=== PATIENT | female | born 1990 | race African-American/Black ===

== ENCOUNTER 2017-01-27 13:28 | Emergency (ER) | payer SELFPAY ==
[~2017-01-27] VITALS: Ht 167.6 cm; Wt 90.0 kg
[~2017-01-27 13:28] MED LIST: AUGM875T PO
[2017-01-27 13:30] VITALS: BP 142/78; PULSE 107; RESP 16; TEMP 98.4; O2SAT 98
--- NOTE | 2017-01-27 13:41 | PD ---
HPI . painful menses Chief Complaint: Front Services Agent Problem/Complaint Time Seen by Provider: 13:41 Travel History International Travel<30 days: No Contact w/Intl Traveler<30days: No Traveled to known affect area: No History of Present Illness HPI 26-year-old female with no significant past medical history here with complaints of painful menses. Patient tells me that she had some spotting prior to her period and then all of a sudden got her period on January 23 and has had some more pain than usual. She would like to know if the pain is going to stop. Pain is alleviated with Aleve/Motrin. She just wants to know what's going on so that she does not take pain relievers. She tells me that she took a test and it was negative. She denies any other symptoms. She denies any nausea, vomiting, abdominal pain, diarrhea etc. She is accompanied by her mother. PFSH Past Medical History Diminished Hearing: No Immunizations Current: No ?: Not Social History Alcohol Use: No Tobacco Use: No Substance Use: No Allergies-Medications (Allergen,Severity, Reaction): Coded Allergies: No Known Allergies (Verified , 01/27/17) Reported Meds & Prescriptions Reported Meds & Active Scripts Active Review of Systems General / Constitutional: No: Fever Eyes: No: Visual changes HENT: No: Headaches Cardiovascular: No: Chest Pain or Discomfort Respiratory: No: Shortness of Breath Gastrointestinal: No: Abdominal Pain Genitourinary: Positive: Other (painful menses), No: Dysuria Musculoskeletal: No: Pain Skin: No Rash Neurologic: No: Weakness Psychiatric: No: Depression Endocrine: No: Polydipsia Hematologic/Lymphatic: No: Easy Bruising Physical Exam Narrative GENERAL: AAO x 3, no acute distress, Well-nourished, well-developed patient. SKIN: Warm and dry. No visible rashes or bruising. Facial hair on her chin and neck HEAD: Normocephalic and atraumatic. EYES: No scleral icterus. No injection or drainage. EOM intact, PERRLA. Mart Conjunctiva bilaterally ENT: No nasal drainage noted. Mucous membranes pink. Airway patent. Mart pupil mucosa. Moist mucous membranes. NECK: Supple, trachea midline. No JVD. No lymphadenopathy CARDIOVASCULAR: Regular rate and rhythm without murmurs, gallops, or rubs. HR on exam 98 RESPIRATORY: Breath sounds equal bilaterally. No accessory muscle use. No rhonchi or rales. GASTROINTESTINAL: Abdomen soft, non-tender, nondistended. No rebound or guarding. No [place] sign. No McBurney's point tenderness EXTREMITIES: No cyanosis or edema. BACK: No obvious deformity. NEURO: CN II-12 intact PSYCH: AAO x 3, normal affect. Data Data Last Documented VS Vital Signs Date Time Temp Pulse Resp B/P (MAP) Pulse Ox O2 Delivery O2 Flow Rate FiO2 01/27/17 13:30 98.4 107 16 142/78 (99) 98 Orders Orders Ed Urine Pregnancytest Poc (01/27/17 13:53) MDM Medical Decision Making Medical Screen Exam Complete: Yes Emergency Medical Condition: Yes Medical Record Reviewed: Yes Differential Diagnosis irregular menses, PCOS, less likely Narrative Course 26-year-old female here with complaints of painful menstrual cycle. On examination there are no gross normality is. I do not believe patient would benefit from any further workup. I recommend she follow-up with her primary care provider or automobile carpets molder. It appears she may have polycystic ovarian syndrome and this could be contributing to her issues. I advised patient to continue using Aleve and Motrin since it seems to be working for her menstrual discomfort. Patient verbalized understanding of instructions, questions were answered, and thanked me for their care. I advised them if their condition worsens, please return to the nearest emergency room for further care. Diagnosis Primary Impression: Painful menstruation Patient Instructions: General Instructions Additional Instructions: Continue using Aleve or Ibuprofen as needed for pain. Disposition: 01 DISCHARGE HOME Condition: Stable Sabrina Case Jan 27, 2017 13:41
== END 2017-01-27 14:21 | disposition home or self-care (01) ==
LOC: NEPD 13:28
DX: N94.6 Dysmenorrhea, unspecified (principal)
CPT/HCPCS: 84703; 99283